=== PATIENT | male | born 1995 | race Caucasian/White ===

== ENCOUNTER 2016-10-14 15:45 | Emergency (ER) | payer OTHER, BC ==
[~2016-10-14] VITALS: Ht 175.3 cm; Wt 88.5 kg
[2016-10-14 16:54] VITALS: BP 140/90
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
[2016-10-14] MEDS ORDERED: NAPR500T8 PO (19:20)
== END 2016-10-14 19:26 | disposition home or self-care (01) ==
LOC: ER 15:45
DX: M54.2 Cervicalgia (principal); R51 Headache; V89.2XXA Person injured in unspecified motor-vehicle accident, traffic, initial encounter; Y92.413 State road as the place of occurrence of the external cause; Y93.89 Activity, other specified; Y99.8 Other external cause status
CPT/HCPCS: 70450; 72040; 99284-25